=== PATIENT | male | born 1970 | race Caucasian/White ===

== ENCOUNTER 2022-10-15 11:08 | Emergency (ER) | payer OTHER, SELFPAY ==
[2022-10-15 11:12] VITALS: BP 138/91; PULSE 84; RESP 20; TEMP 36.8; O2SAT 97; BMI 33.5
--- NOTE | 2022-10-15 11:42 | W.ED.BACK ---
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 The patient does not have any red flag signs or symptoms. He has had exacerbations of his chronic back pain similarly to this in the past although they are usually more short-lived and more responsive to his tizanidine and acetaminophen. The patient does not have any red flag signs or symptoms such as bowel or bladder problems or muscle weakness or anesthesia in the perineal area. He has not had a fever. He is unsure exactly what caused this usually is lifting or bending but he does not recall any triggering factors this time around for this back pain that is been present for about 1 week now. Review of Systems General: Reports: 10 or more systems reviewed and unremarkable except in HPI and below Physical Exam Const: COMMON NORMALS: no acute distress, patient oriented x3, alert and well nourished HENMT: COMMON NORMALS: normocephalic HEAD & SCALP: normocephalic Chest: COMMONS NORMALS: normal inspection of the chest and normal palpation of entire chest wall Resp: COMMON NORMALS: normal respiratory effort, No retractions, No use of accessory muscles, clear to auscultation bilaterally and percussion normal AUSCULTATION: clear to auscultation bilaterally PERCUSSION: percussion normal Cardio: OTHER: Regular rate and rhythm : COMMON NORMALS: Yes no CVA tenderness BLADDER/KIDNEY EXAM: Yes no CVA tenderness Back/Pelvis: COMMON NORMALS: no CVA tenderness Extremity: COMMON NORMALS: normal to inspection, full ROM, capillary refill normal, no joint enlargement, no clubbing, cyanosis or edema, no calf tenderness and no pedal edema Neuro: COMMON NORMALS: patient oriented x3 SENSORIUM/ORIENTATION: Yes alert OTHER: Normal reflexes and muscle strength Skin: COMMON NORMALS: no rashes or lesions noted, turgor normal and no jaundice GENERAL SKIN EXAM: no rashes or lesions noted and turgor normal Course Vital Signs: Vital signs: Vital Signs Temperature 98.2 F 10/15/22 11:49 Pulse Rate 84 10/15/22 11:49 Respiratory Rate 20 H 10/15/22 11:49 Blood Pressure 138/91 10/15/22 11:49 Pulse Oximetry 97 10/15/22 11:49 Oxygen Delivery Me thod 10/15/22 11:12 MDM - Back Pain/Injury Medical Decision Making 52-year-old male with chronic back pain and with acute exacerbation of his back pain without any red flag signs or symptoms. Do not think imaging will help us given the duration and history and physical examination. I have recommended conservative care and follow-up if he is not improving. Follow below outlined instructions and precautions. Differential Diagnosis Likely lumbar radiculopathy, sciatica, strain of lumbar region, renal colic, pyelonephritis, thoracic back pain and discitis Discharge Plan Discharge Patient Disposition: Home Clinical Impression: Acute exacerbation of chronic low back pain Condition: Stable Prescriptions: New Medrol (Noah) 4 mg tablets,dose pack See Rx Instructions .ROUTE .COMPLEX Qty: 21 0RF Rx Instructions: orally per package directions cyclobenzaprine 10 mg tablet 10 mg PO Q8H Qty: 20 0RF Discharge Orders: Discharge ED (Routine); Ordered 10/15/22 Ordered By: Michele Barber Discharge Diet: Usual diet Discharge Activity: Limit activity as instructed Patient Instructions: Opioid Safety, Pain Management Activity Restrictions/Additional Instructions: 1. Use ice and heat. Take Rx as directed. 2. Follow up with PCP in 1 week if not improved. 3. Return for new or worsening symptoms (weakness, fever, problems with bowel, bladder). Coding Level of Care Code ED Sales Agent Insurance for Lisa Perez
[2022-10-15] MEDS: methylPREDNISolone (DEPO) 80 MG/ML INJ 1 mL IM (11:45)
[2022-10-15 11:49] VITALS: BP 138/91; PULSE 84; RESP 20; TEMP 36.8; O2SAT 97
== END 2022-10-15 11:51 | disposition home or self-care (01) ==
PROVIDERS: Emergency Provider Family Medicine
DX: G89.29 Other chronic pain (principal); M54.50 Low back pain, unspecified
CPT/HCPCS: 96372; 99284; J1040